=== PATIENT | female | born 1965 | race Two or more races ===

== ENCOUNTER 2025-05-19 06:38 | Outpatient (REF) | payer OTHER, SELFPAY ==
--- NOTE | ~2025-05-19 | XR_ITS ---
CLINICAL HISTORY: M25.511 - Pain in right shoulder 3 view right shoulder Comparison: None provided Findings: No fractures or dislocations. Mild acromioclavicular osteoarthritis. No erosions. No radiopaque foreign body. IMPRESSION: 1. No acute findings This document has been electronically signed by: Deena Siu MD on 05/20/2025 20:19:49
--- OUTSIDE RECORDS SUMMARY | 2025-05-20 06:41 | XMS_ITS | Clinical Summary ---
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 Zoltan Verdin for headaches. Per Dr. Verdin, I do not tarik Lyn's headaches and pain below her eye are secondary to nasal or sinus pathology. She may benefit from a nasal septoplasty in the future . Type 2 diabetes, controlled, with neuropathy ([facility] V24, [facility] V28) 03/15/2017 Vitamin D deficiency 12/13/2016 Fibromyalgia 08/10/2016 Chronic headache 08/13/2014 HTN (hypertension) 12/10/2013 Plantar fasciitis 11/10/2013 Hypertriglyceridemia 05/28/2013 Asthma 07/25/2012 Resolved Problems Problem Noted Date Diagnosed Date Resolved Date H. pylori infection 07/15/2019 04/23/20 25 Post herpetic neuralgia 07/21/20140 03/2025 Encounters Date Type Department Care Team Description 04/23/2025 9:00 AM EDT Office Visit Internal Medicine - [facility] [address] [facility] [place] [id number] Bonnie Pierre, JAHAIRA Severe episode of recurrent major depressive disorder, without psychotic features ([facility] V24, [facility] V28) (Primary Dx); Chronic nonintractable headache, unspecified headache type; Fibromyalgia; Type 2 diabetes, controlled, with neuropathy ([facility] V24, [facility] V28); Mild intermittent asthma, unspecified whether complicated; Nasal septal deviation; Primary hypertension; Morbid obesity with BMI of 40.0-44.9, adult ([facility] V24, [facility] V28); Vitamin D deficiency; Plantar fasciitis; Hypertriglyceridemia; Screening for metabolic disorder from Last 3 Months Immunizations Name Administration Dates Next Due Influenza Quadravalent, MDCK , 0.5ml, preservative free (Flucelvax) 6mo and older 10/24/2022,10/15/2020,09/16/2018 Influenza trivalent, 0.5mL, preservative free (Fluarix; FluLaval; Fluzone) ages 6mo and older (Afluria) 3 years and older 10/16/2023 PPD Test 11/01/2015 Re[employer] Pros SARS-CoV-2 COVID-19, mRNA, LNP-S, preservative free 03/06/2022,09/11/2021,08/15/2021 Tdap Tetanus diptheria acell ular pertussis (Boostrix; Adacel) 7yo and older 05/01/2024,07/25/2012 Zoster recombinant (Shingrix ) 19yo and older 10/16/2023 Surgical History Surgery Date Site/Laterality Comments OTHER SURGICAL HISTORY PROCEDURE: [facility] LIG/TRNSXJ FLP TUBE ABDL/VAG APPR UNI/BI SECTION PROCEDURE: [facility] DELIVERY ONLY; COMMENT: 3 Medical History Medical [...] care for your loved ones. For example, child specialist or elderly care for an older adult? [...] Care Team (Late st Contact Info) Description 05/25/2025 1:00 PM EDT Office Visit Internal Medicine - [address] [phone] Bonnie Pierre NP [address] [place] [id number] 07/14/2025 4:10 PM EDT Appointment Radiology Department - [address] [phone] Health Maintenance Due Date Last Done Comments [...] BMP Blood Test 05/01/2025 05/01/2024 Influenza Vaccine (#1) 2025 3, 10/24/2022, 10/15/2020, Additional history exists Social Influencers [...] % Breast cancer risk category Low (<15%) Result [facility] Stefanie Vides MD IMG XR PROCEDURES Final Result * Urine Albumin Creatinine Ratio (05/01/2024) [facility] Urine Albumin Creatinine Ratio abstracted Result [facility] Provider HEALTH MAINTENANCE Final Result * Annual BMP Blood Test (05/01/2024) [facility] Annual BMP Blood Test abstracted Result [facility] Provider HEALTH MAINTENANCE Final Result * Depression Screening (05/01/2024) [facility] Depression Screening abstracted Result [facility] HEALTH MAINTENANCE Final Result * Diabetes Foot Exam (05/01/2024) [facility] Diabetes: Annual Foot Exam abstracted Result [facility] Provider HEALTH MAINTENANCE Final Result * Hemoglobin A1c (05/01/2024) [facility] Hemoglobin A1C 6.2 <=6.5 % Blood Venous blood specimen / Unknown Result [facility] Provider LAB BLOOD ORDERABLES Germania l Result * (ABNORMAL) Lipid panel (05/01/2024) [facility] LDL/HDL Ratio 5(A) 0 - 4 Triglycerides 262(A) 0 - 150 mg/dL Cholesterol 278(A) 0 - 200 mg/dL HDL 57 >=40 mg/dL LDL Cholesterol 169(A) 0 - 100 mg/dL Blood Venous blood specimen / Unknown Result [facility] Provider LAB BLOOD ORDERABLES Germania l Result * Cervical Cancer Screening: HPV (12/05/2022) [facility] Cervical Cancer Screening: HPV abstracted, negative Result [facility] Provider HEALTH MAINTENANCE Final Result * Hepatitis C Screening (10/15/2020) [facility] Hepatitis C Screening abstracted Result [facility] Provider HEALTH MAINTENANCE Final Result from Last 3 Months or Most Recently Relevant to Health Maintenance Insurance [place] - [place] [employer] Care Teams Plasterer Stucco Relationship Specialty Start Date End Date Cindy Gonzalez MD [address] [place] PCP - General Internal Medicine 02/03/25
== END 2025-05-19 06:39 | disposition home or self-care (01) ==
LOC: HO.HOSX 06:38
PROVIDERS: Visit Provider Physician Assistant
DX: M25.511 Pain in right shoulder (principal)
CPT/HCPCS: 20610; 73030; J1010; J2003

== ENCOUNTER 2025-05-19 10:34 | Outpatient (AMB) | payer OTHER, SELFPAY ==
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
[2025-05-19 10:48] VITALS: BMI 42.4
--- OUTSIDE RECORDS SUMMARY | 2025-05-19 11:46 | XMS_ITS | Clinical Summary ---
Author Organization [facility] Address [address] [place] [address] Phone Care Team Providers Care Business Asst Name Role Phone Cindy Gonzalez MD Primary Care Provider [phone] Allergies No known active allergies Medications blood sugar diagnostic (FreeStyle Lite Strips) test strip USE TO TEST BLOOD SUGAR ONCE DAILY 05/24/20 23 Active FREESTYLE LANCETS MISC Inject 1 Device into the skin daily. 04/12/20 23 Active blood-glucose meter kit 1 Each by Does not apply route as needed for Other (DX: E11.40). 10/08/20 17 Active blood pressure monitor kit 1 Units by Does not apply route daily. 05/01/20 24 Active albuterol HFA (PROAIR HFA ; PROVENTIL HFA ; VENTOLIN HFA) 90 mcg/actuation inhaler Inhale 2 puffs by mouth every 4 (four) hours if needed for wheezing. 6.7 g 04/23/20 25 Active escitalopram (Lexapro) 5 mg tablet Take 1 tablet (5 mg total) by mouth 1 (one) time each day. 90 each 1 04/23/20 25 025 Active albuterol 2.5 mg /3 mL (0.083 %) nebulizer solution Take 1 Vial by nebulization every 4 hours as needed for Wheezing. 09/09/20 24 025 Discontin ued(Thera py completed ) albuterol HFA (PROAIR HFA ; PROVENTIL HFA ; VENTOLIN HFA) 90 mcg/actuation inhaler Inhale 2 Puffs into the lungs every 6 hours as needed for Cough or Wheezing. 05/01/20 24 025 Discontin ued(Reord er) albuterol HFA (ProAir HFA) 90 mcg/actuation inhaler TAKE 1 PUFF BY MOUTH EVERY 6 HOURS NEEDED FOR COUGH OR WHEEZING. 09/09/20 21 025 Discontin ued(Dupli emely order) atorvastatin (LIPITOR) 80 mg tablet Take 1 Tablet by mouth daily. 05/01/20 24 025 Discontin ued(Patie nt Discharge ) cyclobenzaprine (FLEXERIL) 10 mg tablet Take 1 Tablet by mouth at bedtime as needed for Muscle spasms. 07/17/20 24 025 Discontin ued(Thera py completed ) glimepiride (AMARYL) 4 mg tablet Take 1 Tablet by mouth every morning (before breakfast). 05/01/20 24 025 Discontin ued(Thera py completed ) lisinopriL (PRINIVIL,ZESTRI L) 10 mg tablet Take 1 Tablet by mouth daily. 05/05/20 24 025 Discontin ued(Thera py completed ) nabumetone (RELAFEN) 750 mg tablet Take 1 Tablet by mouth 2 times daily for 360 days. 05/01/20 24 025 Discontin ued(Presc riber Discontin ued) omeprazole (PriLOSEC) [address] capsule Take 1 Capsule by mouth daily for 360 days. 05/01/20 24 025 Discontin ued(Presc riber Discontin ued) Trulicity 0.75 mg/0.5 mL pen injector injectionIndicat ions:Type 2 diabetes mellitus with other diabetic neurological complication ([facility] V24, [facility] V28) INJECT 0.75 MG INTO THE SKIN ONCE A WEEK. INJECT 1 PEN SUBCUTANEOUSLY ONCE A WEEK 2 mL 10/28/20 24 025 Discontin ued(Patie nt Discharge ) albuterol HFA (PROAIR HFA ; PROVENTIL HFA ; VENTOLIN HFA) 90 mcg/actuation inhalerIndicatio ns:Moderate persistent asthma with acute exacerbation Inhale 2 puffs by mouth every 4 (four) hours if needed for wheezing. 18 each 11/07/20 24 025 Discontin ued(Dupli emely order) lisinopriL (PRINIVIL,ZESTRI L) 10 mg tablet Take 1 tablet (10 mg total) by mouth 1 (one) time each day. 30 tablet 5 04/23/20 25 025 Discontin ued(Patie nt Discharge ) atorvastatin (LIPITOR) 80 mg tablet Take 1 tablet (80 mg total) by mouth 1 (one) time each day. 30 tablet 5 04/23/20 25 025 Discontin ued(Patie nt Discharge ) albuterol HFA (PROAIR HFA ; PROVENTIL HFA ; VENTOLIN HFA) 90 mcg/actuation inhaler Inhale 2 puffs by mouth every 4 (four) hours if needed for wheezing. 6.7 g 04/23/20 25 025 Discontin ued(Dupli emely order) Active Problems Problem Noted Date Diagnosed Date Morbid obesity with BMI of 4 0.0-44.9, adult ([facility] V24, [facility] V28) 10/09/2024 Nasal septal deviation 04/24/2018 Overview (10/09/2024): Evaluated by Dr. Zoltan Verdin for headaches. Per Dr. Verdin, I do not tarik Lyn's headaches and pain below her eye are secondary to nasal or sinus pathology. She may benefit from a nasal septoplasty in the future . Type 2 diabetes, controlled, with neuropathy ([facility] V24, [facility] V28) 03/15/2017 Vitamin D deficiency 12/13/2016 Fibromyalgia 08/10/2016 Chronic headache 08/13/2014 HTN (hypertension) 12/10/2013 Plantar fasciitis 11/10/2013 Hypertriglyceridemia 05/28/2013 Asthma 07/25/2012 Resolved Problems Problem Noted Date Diagnosed Date Resolved Date H. pylori infection 07/15/2019 04/23/20 25 Post herpetic neuralgia 07/21/20140 03/2025 Encounters Date Type Department Care Team Description 04/23/2025 9:00 AM EDT Office Visit Internal Medicine - [facility] [address] [facility] [place] [id number] Bonnie Pierre, JAHAIRA Severe episode of recurrent major depressive disorder, without psychotic features ([facility] V24, [facility] V28) (Primary Dx); Chronic nonintractable headache, unspecified headache type; Fibromyalgia; Type 2 diabetes, controlled, with neuropathy ([facility] V24, [facility] V28); Mild intermittent asthma, unspecified whether complicated; Nasal septal deviation; Primary hypertension; Morbid obesity with BMI of 40.0-44.9, adult ([facility] V24, [facility] V28); Vitamin D deficiency; Plantar fasciitis; Hypertriglyceridemia; Screening for metabolic disorder from Last 3 Months Immunizations Name Administration Dates Next Due Influenza Quadravalent, MDCK , 0.5ml, preservative free (Flucelvax) 6mo and older 10/24/2022,10/15/2020,09/16/2018 Influenza trivalent, 0.5mL, preservative free (Fluarix; FluLaval; Fluzone) ages 6mo and older (Afluria) 3 years and older 10/16/2023 PPD Test 11/01/2015 Unbounce SARS-CoV-2 COVID-19, mRNA, LNP-S, preservative free 03/06/2022,09/11/2021,08/15/2021 Tdap Tetanus diptheria acell ular pertussis (Boostrix; Adacel) 7yo and older 05/01/2024,07/25/2012 Zoster recombinant (Shingrix ) 19yo and older 10/16/2023 Surgical History Surgery Date Site/Laterality Comments OTHER SURGICAL HISTORY PROCEDURE: OK LIG/TRNSXJ FLP TUBE ABDL/VAG APPR UNI/BI SECTION PROCEDURE: OK DELIVERY ONLY; COMMENT: 3 Medical History Medical History Date Comments Type II or unspecified type diabetes mellitus with unspecified complication, not stated as uncontrolled DX:Type II or unspecified t ype diabetes mellitus with unspecified complication, not stated as uncontrolled Unspecified essential hypertension DX:Unspecified essential hypertension Ankle fracture, left 2002 DX:Ankle fr acture, left Family History Medical History Relation Name Comments No Known Problems Aunt No Known Problems Brother 1 No Known Problems Brother 2 Diabetes Brother 3 No Known Problems Father No Known Problems Maternal Grandfather No Known Problems Maternal Grandmother Cataracts Mother No Known Problems Other 1 Ovarian cancer Other 2 niece No Known Problems Paternal Grandfather No Known Problems Paternal Grandmother No Known Problems Sister 1 No Known Problems Sister 2 No Known Problems Uncle Blindness Neg Hx Breast cancer Neg Hx Glaucoma Neg Hx Macular degeneration Neg Hx Strabismus Neg Hx Relation Name Status Comments Aunt Brother 1 Alive Brother 2 Alive Brother 3 Alive Father Maternal Grandfather Maternal Grandmother Mother Alive Other 1 Other 2 niece Paternal Grandfather Paternal Grandmother Sister 1 Alive Sister 2 Alive Uncle Social History Tobacco Use Types Packs/Day Years Used Date Smoking Tobacco: Former Cigarettes 1 18 0 11/19/1979 - 11/19/1997 Smokeless Tobacco: Never Tobacco Cessation:Counseling Given: Not Answered Alcohol Use Standard Drinks/Week Comments No 0 (1 standard drink = 0.6 oz pur e alcohol) Housing Instability Answer Date Recorde d Are you worried that in the next 2 months you may not have stable housing? No 04/18/2025 Food Access & Nutrition Answer Date Rec orded Do you have access to a vari ety of food including fruits and vegetables? Yes 04/18/2025 Access to Healthcare Answer Date Record ed Within the last 3 months, ho w many times did you visit the emergency department for your medical care? 0 04/18/2025 Health Literacy Answer Date Recorded How often do you need to hav e someone help you when you read instructions, pamphlets, or other written material from your doctor or pharmacy? Never 04/18/2025 Caregiver: How often do you need to have someone help you when you read instructions, pamphlets, or other written material from your doctor or pharmacy? Not on file 04/18/2025 Financial Risk Answer Date Recorded How hard is it for you to pa y for the very basics like food, housing, medical care, and air conditioning / heating? Not very hard 04/18/2025 Transportation Answer Date Recorded Has the lack of transportati on kept you from meetings, work, or from getting things needed for daily living? No Has the lack of transportati on kept you from medical appointments or from getting medications? No 04/18/2025 Social Isolation Answer Date Recorded How often do you feel lonely or isolated from th ose around you? Rarely 04/18/2025 Food Risk Answer Date Recorded Within the past 12 months we worried whether our food would run out before we got money to buy more. Never true 04/18/2025 Within the past 12 months th e food we bought just didn't last and we didn't have money to get more. Never true 04/18/2025 Dependent Care Answer Date Recorded Do you need help finding or paying for care for your loved ones. For example, children's author or elderly care for an older adult? No 04/18/2025 Education Answer Date Recorded Do you think completing more education or training, like finishing a GED, going to college, or learning a trade, would be helpful for you? Yes 04/18/2025 Employment and Income Answer Date Recor ded During the last four weeks, have you been actively looking for work? No 04/18/2025 Living Situation Answer Date Recorded What is your living situation? 0 04/18/2025 Comments No Sex and Gender Information Value Date Recorded Sex Assigned at Female 11/07/2024 12:14 PM EST Legal Sex Female 8:15 PM EST Gender Identity Female 11/07/2024 12:14 PM EST Sexual Orientation Straight 02/10/2025 10 :15 AM EDT Obstetrics History Last Filed Vital Signs Vital Sign Reading Time Taken Comments Blood Pressure 137/86 04/23/2025 8:51 AM EDT aut o cuff Pulse 86 04/23/2025 8:51 AM EDT auto cuff Temperature 36.8 C (98.3 F) 04/23/2025 8:51 AM EDT Respiratory Rate 18 11/07/2024 10:48 AM EST Oxygen Saturation 98% 11/07/2024 10:57 AM EST Inhaled Oxygen Concentration - - Weight 98.2 kg (216 lb 8 oz) 04/23/2025 8:51 AM EDT Height 149.9 cm (4' 11 ) 11/07/2024 10:48 AM EST Body Mass Index 43.73 11/07/2024 10:48 AM EST Plan of Treatment Upcoming Encounters Date Type Department Care Team (Late st Contact Info) Description 05/21/2025 10:00 AM EDT [facility] [address] [facility] [place] [phone] Cindy Gonzalez MD [address] [facility] [place] 05/25/2025 1:00 PM EDT Office Visit Internal Medicine - [facility] [address] [place], [place] [phone] Bonnie Pierre, CARGOMAN [address] [place] [address] 07/14/2025 4:10 PM EDT Appointment Radiology Department [address] [phone] Health Maintenance Due Date Last Done Comments Diabetes: Annual Retina Eye Exam 1977 Hepatitis B Vaccines (1 of 3 - 19+ 3-dose series) 1986 Pneumococcal Vaccine: 50+ Years (1 of 2 - PCV) 1986 Pneumococcal Vaccine: Pediatrics (0 to 5 Years) and At-Risk Patients (6 to 64 Years) (1 of 2 - PCV) 1986 Colorectal Cancer Screening: Stool Based Tests (FOBT/FIT) 10/28/2022 HIV Screening 10/28/2022 Zoster Vaccines (2 of 2) 12/11/2023 10/16/2023 COVID-19 Vaccine ( season) 2024 03/06/2022, 09/11/2021, 08/15/2021 Diabetes: Blood Sugar Control Test (HGBA1C) 10/31/2024 05/01/2024 Diabetes: Annual Urine Albumin-Creatinine Ratio (uACR) 05/01/2025 05/01/2024 Diabetes: Annual Foot Exam 05/01/2025 05/01/2024 Diabetes: Annual GFR (Glomerular Filtration Rate) 05/01/2025 05/01/2024 Hypertension/CHF/CAD Annual BMP Blood Test 05/01/2025 05/01/2024 Influenza Vaccine (Season Ended) 2025 10/16/2023, 10/24/2022, 10/15/2020, Additional history exists Social Influencers of Health Screening 04/18/2026 04/18/2025 Depression Screening 04/23/2026 04/23/2025, 05/01/20 Breast Cancer Screening 07/10/2026 07/10/20 24, 09/21/2022, 03/16/2021, Additional history exists Cervical Cancer Screening: HPV 12/05/2027 12/05/2022 Cholesterol Screening (Lipid Panel) 05/01/2029 05/01/2024 DTaP,Tdap,and Td Vaccines (3 - Td or Tdap) 05/01/2034 05/01/2024, 07/25/2012 Hepatitis C Screening Completed 10/15/2020 HIB Vaccines Aged Out No longer eligi ble based on patient's age to complete this topic HPV Vaccines Aged Out No longer eligi ble based on patient's age to complete this topic Hepatitis A Vaccines Aged Out No long er eligible based on patient's age to complete this topic IPV Vaccines Aged Out No longer eligi ble based on patient's age to complete this topic MMR Vaccines Aged Out No longer eligi ble based on patient's age to complete this topic Meningococcal ACWY Vaccine Aged Out N o longer eligible based on patient's age to complete this topic Meningococcal B Vaccine Aged Out No l onger eligible based on patient's age to complete this topic RSV Immunization Patients Under 20 months Aged Out No longer eligible based on patient's age to complete this topic Varicella Vaccines Aged Out No longer eligible based on patient's age to complete this topic Procedures Procedure Name Priority Date/Time Associated Diagnosis Comments SCREENING MAMMOGRAPHY BI 2-VIEW BREAST INC CAD Routine 07/10/2024 4:22 PM EDT Encounter for screening mammogram for malignant neoplasm of breast DEPRESSION SCREENING Routine 05/01/2024 URINE ALBUMIN CREATININE RATIO Routine 05/01/2024 ANNUAL BMP BLOOD TEST Routine 05/01/2024 HEMOGLOBIN A1C Routine 05/01/2024 LIPID PANEL Routine 05/01/2024 DIABETES FOOT EXAM Routine 05/01/2024 HPV Routine 12/05/2022 HEPATITIS C SCREENING Routine 10/15/2020 from Last 3 Months or Most Recently Relevant to Health Maintenance Results * SCREENING MAMMOGRAPHY BI 2-VIEW BREAST INC CAD (07/10/2024 4:22 PM EDT) Anatomical Region Laterality Modality Radiographic Aura ging 09/21/2022 2:39 PM EDT Narrative 07/11/2024 3:51 PM EDT This is a summary report. The complete report is available in the patient's medical record. If you cannot access the medical record, please contact the sending organization for a detailed fax or copy. Full field digital screening 2D C views and 3D tomosynthesis tomosynthesis mammography, reviewed with CAD and compared to previous. The breasts are composed of fatty and fibroglandular tissue. No suspicious mass, architectural distortion or suspicious calcifications are identified. IMPRESSION: : No mammographic evidence of malignancy. BIRADS 1-Negative; N. 5 year breast cancer risk assessment 0.6 % Lifetime breast cancer risk assessment 4.1 % Breast cancer risk category Low (<15%) Procedure Note Yanci Preciado MD - 09/03/2024 This is a summary report. The complete report is available in thepatient's medical record. If you cannot access the medical record, pleasecontact the sending organization for a detailed fax or copy. Full field digital screening 2D C views and 3D tomosynthesis tomosynthesismammography, reviewed with CAD and compared to previous. The breasts arecomposed of fatty and fibroglandular tissue. No suspicious mass,architectural distortion or suspicious calcifications are identified. IMPRESSION: : No mammographic evidence of malignancy. BIRADS 1-Negative; N. 5 year breast cancer risk assessment 0.6 % Lifetime breast cancer risk assessment 4.1 % Breast cancer risk category Low (<15%) us Stefanie Vides MD IMG XR PROCEDURES Final Result * Urine Albumin Creatinine Ratio (05/01/2024) Urine Albumin Creatinine Ratio abstracted Historical Provider HEALTH MAINTENANCE Final Result * Annual BMP Blood Test (05/01/2024) [facility] Annual BMP Blood Test abstracted Result [facility] Provider HEALTH MAINTENANCE Final Result * Depression Screening (05/01/2024) [facility] Depression Screening abstracted Result [facility] Provider HEALTH MAINTENANCE Final Result * Diabetes Foot Exam (05/01/2024) [facility] Diabetes: Annual Foot Exam abstracted Result [facility] Provider HEALTH MAINTENANCE Final Result * Hemoglobin A1c (05/01/2024) [facility] Hemoglobin A1C 6.2 <=6.5 % Blood Venous blood specimen / Unknown Result [facility] Provider LAB BLOOD ORDERABLES Germania l Result * (ABNORMAL) Lipid panel (05/01/2024) [facility] LDL/HDL Ratio 5(A) 0 - 4 Triglycerides 262(A) 0 - 150 mg/dL Cholesterol 278(A) 0 - 200 mg/dL HDL 57 >=40 mg/dL LDL Cholesterol 169(A) 0 - 100 mg/dL Blood Venous blood specimen / Unknown Result [facility] Provider LAB BLOOD ORDERABLES Germania l Result * Cervical Cancer Screening: HPV (12/05/2022) [facility] Cervical Cancer Screening: HPV abstracted, negative Result [facility] Provider HEALTH MAINTENANCE Final Result * Hepatitis C Screening (10/15/2020) [facility] Hepatitis C Screening abstracted Result [facility] Provider HEALTH MAINTENANCE Final Result from Last 3 Months or Most Recently Relevant to Health Maintenance Insurance [place]ICA[place] [employer] Care Teams Business Asst Relationship Specialty Start Date End Date Cindy Gonzalez MD [address] [place] PCP - General Internal Medicine 02/03/25
== END 2025-05-19 11:21 | disposition home or self-care (01) ==
LOC: HO.HOS 10:34
PROVIDERS: Visit Provider Physician Assistant
DX: M19.011 Primary osteoarthritis, right shoulder (principal); M25.811 Other specified joint disorders, right shoulder
CPT/HCPCS: 20610; 99203

== ENCOUNTER → 2025-05-19 10:37 | Outpatient (BNV) | payer OTHER, SELFPAY | PROVIDERS: Visit Provider Radiology Diagnostic Radiology | DX: M19.011 Primary osteoarthritis, right shoulder (principal) | CPT/HCPCS: 73030 ==